=== PATIENT | female | born 2000 | race Caucasian/White ===

== ENCOUNTER 2024-02-06 06:38 | Inpatient (IN) | payer BC, SELFPAY ==
[~2024-02-06] VITALS: Ht 160 cm; Wt 56.8 kg
[2024-02-06] MEDS ORDERED: MOM 30ML SUSPENSION UDC PO PRN (09:40)
[2024-02-06] MEDS ORDERED: ACETAMINOPHEN 325 MG TAB PO PRN (09:40)
[2024-02-06] MEDS ORDERED: diphenhydrAMINE 25MG CAP PO PRN (09:40)
[2024-02-06] MEDS ORDERED: MAALOX 30 ML SUSP *UDC PO PRN (09:40)
[2024-02-06] MEDS ORDERED: IBUPROFEN 400MG TAB PO PRN (09:40)
[2024-02-06] MEDS ORDERED: LEXA1TAB PO (09:55)
[2024-02-06] MEDS ORDERED: D-101000 PO (09:55)
[2024-02-06] MEDS ORDERED: LORA-622 PO (09:57)
[2024-02-06] MEDS ORDERED: CYAN-11 PO (09:57)
[2024-02-06] MEDS ORDERED: HOME MED LIST COMPLETE! XX SCH (10:00)
[2024-02-06 11:04] VITALS: BP 113/65; TEMP 97.8; O2SAT 96
[2024-02-06 14:45] VITALS: BP 110/65; TEMP 98.7; O2SAT 100
[2024-02-07 06:36] VITALS: BP 110/55; TEMP 97.6; O2SAT 97
[2024-02-07] MEDS ORDERED: ABIL1TAB11 PO (09:17)
[2024-02-07] MEDS ORDERED: TRAZ-252 PO (09:37)
[2024-02-07 15:29] LABS: HEMATOCRIT 39.8 % (36.0-47.0); HEMOGLOBIN 12.7 g/dl (12.0-15.5); MEAN CORPUSCULAR HEMOGLOBIN 27.5 pg (27.0-33.0); MEAN CORPUSCULAR HGB CONC 31.9 g/dl (32.0-36.5); MEAN CORPUSCULAR VOLUME 86.1 fl (80.0-96.0); PLATELET COUNT, AUTOMATED 333 10^3/uL (150-450); RED BLOOD COUNT 4.62 10^6/uL (4.00-5.40); WHITE BLOOD COUNT 6.7 10^3/uL (4.0-10.0)
[2024-02-07 15:46] LABS: ALBUMIN 3.1 G/DL (3.2-5.2); ALKALINE PHOSPHATASE 77 U/L (35-104); ALT/SGPT < 9 U/L (7.0-40); AST/SGOT 9 U/L (<34); BILIRUBIN,DIRECT 0.1 MG/DL (<0.4); BILIRUBIN,TOTAL 0.5 MG/DL (0.3-1.2); BLOOD UREA NITROGEN 8 MG/DL (9-23); CALCIUM LEVEL 9.3 MG/DL (8.5-10.1); CARBON DIOXIDE LEVEL 24 MMOL/L (20-31); CHLORIDE LEVEL 107 MMOL/L (98-107); CREATININE FOR GFR 0.61 MG/DL (0.55-1.30); GLOMERULAR FILTRATION RATE > 60.0 (>60); GLUCOSE, FASTING 92 MG/DL (60-100); POTASSIUM SERUM 4.2 MMOL/L (3.5-5.1); SODIUM LEVEL 138 MMOL/L (136-145); TOTAL PROTEIN 6.9 G/DL (5.7-8.2)
[2024-02-07 16:19] LABS: FOLATE 15.8 NG/ML (>5.4)
[2024-02-07 16:20] LABS: VITAMIN B12 LEVEL 917 PG/ML (211-911)
[2024-02-07 16:45] LABS: HIV 1&2 SCREEN NEGATIVE (NEGATIVE)
[2024-02-07 17:09] VITALS: BP 130/92; TEMP 97.3; O2SAT 98
[2024-02-07 17:28] LABS: URINE PREG TEST NEGATIVE (NEGATIVE)
[2024-02-07 17:37] LABS: APPEARANCE, URINE CLEAR (CLEAR); BACTERIA, URINE AUTO NEGATIVE (NEGATIVE); BILIRUBIN, URINE AUTO NEGATIVE (NEGATIVE); BLOOD, URINE BLOOD NEGATIVE (NEGATIVE); COLOR, URINE YELLOW (YELLOW); GLUCOSE, URINE (UA) AUTO NEGATIVE (NEGATIVE); KETONE, URINE AUTO NEGATIVE (NEGATIVE); LEUKOCYTE ESTERASE, URINE AUTO NEGATIVE (NEGATIVE); MUCUS, URINE SMALL (NEGATIVE); NITRITE, URINE AUTO NEGATIVE (NEGATIVE); PROTEIN, URINE AUTO NEGATIVE (NEGATIVE); RBC, URINE AUTO 0 /HPF (0-3); SPECIFIC GRAVITY URINE AUTO 1.017 (1.002-1.035); SQUAMOUS EPITHELIAL CELL UR AU 2 /HPF (0-6); WBC, URINE AUTO 0 /HPF (0-3)
[2024-02-07 17:41] VITALS: BP 116/74; TEMP 97.2; O2SAT 97
[2024-02-07 18:37] LABS: Trichomonas vaginalis (AMP) NOT DETECTED (NEGATIVE)
[2024-02-07 19:00] LABS: GC DNA AMPLIFICATION NEGATIVE (NEGATIVE)
[2024-02-07] MEDS: traZODone 50 MG TAB PO PRN (20:27)
[2024-02-07] MEDS ORDERED: NITROFURANTOIN (MACROBID) 100 MG CAP PO SCH (21:00)
[2024-02-07] MEDS: DOXYCYCLINE HYCLATE 100MG TABLET PO SCH (22:09)
[2024-02-08 06:30] VITALS: BP 96/50; TEMP 97.5; O2SAT 96
[2024-02-08 06:53] LABS: CHOLESTEROL RISK RATIO 2.84 (<5); HDL CHOLESTEROL 69.5 MG/DL (>40); LDL CHOLESTEROL 80.5 MG/DL (<100); NON-HDL-C 128.5 MG/DL
[2024-02-08] MEDS ORDERED: PROHANCE 279.3MG/ML 15ML VIAL As Ordered ONE (10:23)
[2024-02-08] MEDS ORDERED: DOXY100T PO (14:22)
== END 2024-02-08 18:45 | disposition home or self-care (01) | DRG 753 ==
LOC: M ED 06:38 → M ED INP 09:37 → M PSY 11:11
PROVIDERS: ADMIT Psychiatry & Neurology Psychiatry; ATTEND Psychiatry & Neurology Psychiatry
DX: F31.9 Bipolar disorder, unspecified (principal); R45.851 Suicidal ideations; R20.0 Anesthesia of skin; Z91.52 Personal history of nonsuicidal self-harm; Z79.899 Other long term (current) drug therapy